=== PATIENT | female | born 1990 | race Two or more races ===

== ENCOUNTER 2022-07-17 09:01 | Emergency (ER) | payer OTHER ==
[~2022-07-17] VITALS: Ht 167.6 cm; Wt 153.4 kg
[2022-07-17 11:04] VITALS: BP 151/93
[2022-07-17] MEDS ORDERED: ACETAMINOPHEN 500 MG TAB PO ONE (11:30)
[2022-07-17] MEDS ORDERED: ACET1CAP14 PO (13:07)
[2022-07-17] MEDS ORDERED: AMOX-277 PO (13:07)
== END 2022-07-17 13:19 | disposition home or self-care (01) ==
LOC: ER 09:01
DX: H66.92 Otitis media, unspecified, left ear (principal)
CPT/HCPCS: 87070; 87880

== ENCOUNTER 2024-10-25 18:48 | Emergency (ER) | payer OTHER ==
[~2024-10-25] VITALS: Ht 162.6 cm; Wt 152.5 kg
[~2024-10-25 18:48] MED LIST: ACET1CAP14 PO; AMOX875T4 PO
[2024-10-25 19:37] LABS: Hematocrit 39.0 % (36.0-46.0); Hemoglobin 12.7 g/dL (12.2-16.2); Mean Corpuscular Hemoglobin 23.8 pg (28.0-32.0); Mean Corpuscular Volume 73.3 fL (80.0-100.0); Nucleated Red Blood Cells % 0.1 %
[2024-10-25 19:45] VITALS: BP 155/95; PULSE 98; RESP 19; TEMP 98.3; O2SAT 97
[2024-10-25 19:48] LABS: Alanine Aminotransferase 27 U/L (7-40); Albumin 4.6 g/dL (3.2-4.8); Anion Gap 10 (5-15); BUN/Creatinine Ratio 9.5 (10.0-20.0); Calcium 9.2 mg/dL (8.7-10.4); Carbon Dioxide 26 mmol/L (20-31); Chloride 101 mmol/L (98-107); Sodium 137 mmol/L (136-145); Total Protein 8.1 g/dL (5.7-8.2)
[2024-10-25 19:49] LABS: Bilirubin, Total 0.5 mg/dL (0.2-1.0)
--- NOTE | 2024-10-25 19:50 | DVH ---
CHEST RADIOGRAPH Indication: SOB Technique: Frontal and lateral view of the chest was obtained Comparison: None FINDINGS: Lines and Tubes: None Lungs: Clear Pleura: No pleural effusion or pneumothorax. Cardiomediastinal contours: Unremarkable Bones: Unremarkable IMPRESSION: No abnormality demonstrated.
[2024-10-25 19:51] LABS: Alkaline Phosphatase 134 U/L (46-116); Blood Urea Nitrogen 7 mg/dL (9-23); Glucose 144 mg/dL (74-106); Potassium 3.5 mmol/L (3.5-5.1)
[2024-10-25] MEDS: SODIUM CHLORIDE 0.9% 2,000 ML IV ONE (20:12)
[2024-10-25 20:13] LABS: COVID19 ANTIGEN SOFIA FIA NEGATIVE (NEGATIVE)
[2024-10-25 20:17] LABS: Urine Protein, UAD TRACE (Negative)
[2024-10-25] MEDS: ACETAMINOPHEN 325 MG TAB PO ONE (20:19)
[2024-10-25] MEDS: KETOROLAC TROMETH 30 MG/ML 1ML VIAL IV ONE (20:20)
[2024-10-25] MEDS ORDERED: BACDST PO (21:40)
[2024-10-25] MEDS ORDERED: IBUP-1454 PO (21:40)
--- NOTE | 2024-10-25 21:40 | ED.PDOC ---
History of Present Illness Chief Complaint: Sore Throat Time Seen by MD: 19:00 Reviewed Notes: Nurses Notes, Medications, Allergies Past Medical History PAST MEDICAL HISTORY: Denies Surgical History: MEDICAL LIBRARIAN History: Denies all MEDICAL LIBRARIAN Hx Family History Family History: Reviewed,noncontributory to illness Social History Smoker: Non-Smoker Alcohol: Denies ETOH Use Drugs: Denies Drug Use Lives In: Home X-Ray, Labs, Meds, VS Vital Signs Date Time Temp Pulse Resp B/P (MAP) Pulse Ox O2 Delivery O2 Flow Rate FiO2 10/25/24 19:45 98 19 97 Room Air 10/25/24 19:45 98.3 98 19 155/95 (115) 97 98.3 10/25/24 18:50 99.2 117 18 149/90 97 99.2 Lab Test 10/25/24 20:00 10/25/24 19:45 10/25/24 19:26 Range/Units Urine Color Colorless Yellow Urine Clarity Turbid H Clear Urine pH 6.0 5.0-9.0 Urine Specific [place] 1.005 1.001-1.035 Urine Protein Trace H Negative Urine Ketones Negative Negative Urine Blood 1+ H Negative /uL Urine Nitrite Negative Negative Urine Bilirubin Negative Negative Urine Urobilinogen Normal Negative mg/dL Urine Leukocyte Esterase 3+ Negative /uL Urine RBC 3 0 - 4 /hpf Urine Microscopic WBC 21 H 0-5 /HPF Urine Squamous Epithelial Cells Mod <5 /hpf Urine Bacteria Few H None Seen /hpf Urine Glucose Normal Normal mg/dL Influenza Type A Antigen Negative Negative Influenza Type B Antigen Negative Negative SARS-CoV-2 Antigen (Rapid) Negative NEGATIVE White Blood Count 9.4 4.4-10.8 10^3/uL Red Blood Count 5.31 H 4.0-5.20 10^6/uL Hemoglobin 12.7 12.2-16.2 g/dL Hematocrit 39.0 36.0-46.0 % Mean Corpuscular Volume 73.3 L 80.0-100.0 fL Mean Corpuscular Hemoglobin 23.8 L 28.0-32.0 pg Mean Corpuscular Hemoglobin Concent 32.5 32.0-36.0 g/dL Red Cell Distribution Width 16.7 H 11.8-14.3 % Platelet Count 288 140-450 10^3/uL Mean Platelet Volume 7.5 6.9-10.8 fL Neutrophils (%) (Auto) 69.7 37.0-80.0 % Lymphocytes (%) (Auto) 22.7 10.0-50.0 % Monocytes (%) (Auto) 3.4 0.0-12.0 % Eosinophils (%) (Auto) 3.5 0.0-7.0 % Basophils (%) (Auto) 0.7 0.0-2.0 % Neutrophils # (Auto) 6.5 1.6-8.6 10 ^3/uL Lymphocytes # (Auto) 2.1 0.4-5.4 10 ^3/uL Monocytes # (Auto) 0.3 0-1.3 10 ^3/uL Eosinophils # (Auto) 0.3 0-0.8 10 ^3/uL Basophils # (Auto) 0.1 0-0.2 10 ^3/uL Nucleated Red Blood Cells 0.1 % Sodium Level 137 136-145 mmol/L Potassium Level 3.5 3.5-5.1 mmol/L Chloride Level 101 98-107 mmol/L Carbon Dioxide Level 26 20-31 mmol/L Anion Gap 10 5-15 Blood Urea Nitrogen 7 L 9-23 mg/dL Creatinine 0.74 0.550-1.02 mg/dL Glomerular Filtration Rate Calc 110 >90 mL/min BUN/Creatinine Ratio 9.5 L 10.0-20.0 Serum Glucose 144 H 74-106 mg/dL Lactic Acid Level 1.4 0.4-2.0 mmol/L Calcium Level 9.2 8.7-10.4 mg/dL Total Bilirubin 0.5 0.2-1.0 mg/dL Aspartate Amino Transferase (AST) 20 13-40 U/L Alanine Aminotransferase (ALT) 27 7-40 U/L Alkaline Phosphatase 134 H 46-116 U/L Total Protein 8.1 5.7-8.2 g/dL Albumin 4.6 3.2-4.8 g/dL Current Medications Medications (Trade) Dose Ordered Sig/Naty Route Start Time Stop Time Status Last Admin Sodium Chloride 2,000 ml @ 1,000 mls/hr Q2H ONCE IV 10/25/24 19:15 10/25/24 21:14 DC 10/25/24 20:12 Ketorolac Tromethamine (Toradol Injection) 30 mg ONCE ONCE IV 10/25/24 19:15 10/25/24 19:16 DC 10/25/24 20:20 Acetaminophen (Tylenol Tablet) 650 mg ONCE ONCE PO 10/25/24 19:15 10/25/24 19:16 DC 10/25/24 20:19 Ceftriaxone Sodium 50 ml @ 100 mls/hr ONCE ONCE IV 10/25/24 20:30 10/25/24 20:59 DC 10/25/24 20:39 Time of 2ND Reevaluation: 21:39 Reevaluation 2ND: Improved Patient Education/Counseling: Diagnosis, Treatment, Prognosis, Need For Follow Up Family Education/Counseling: No Family Present SEPSIS Sepsis Screen Date sepsis recognized/suspect: Oct 25, 2024 Time Sepsis recognized/suspect: 1851 Recent Procedure: No On Antibiotic Therapy: No Respiratory Rate >20: No Heart Rate >90: No Temp<36 C (96.8 F) or >38.3 C: No SBP <90 or MAP <65 mmHG: No New Acute Mental Status Change: No Is the patient on CPAP, BIPAP,: No Physician Orders Chest Two Views Routine (10/25/24 19:05) Vital Signs Date Time Temp Pulse Resp B/P (MAP) Pulse Ox O2 Delivery O2 Flow Rate FiO2 10/25/24 19:45 98 19 97 Room Air 10/25/24 19:45 98.3 98 19 155/95 (115) 97 98.3 10/25/24 18:50 99.2 117 18 149/90 97 99.2 Laboratory Tests Test 10/25/24 19:26 Lactic Acid Level 1.4 mmol/L (0.4-2.0) White Blood Count 9.4 10^3/uL (4.4-10.8) Medications Medications Dose Ordered Sig/Naty Route Start Time Stop Time Status Last Admin Dose Admin Acetaminophen 650 mg ONCE ONCE PO 10/25/24 19:15 10/25/24 19:16 DC 10/25/24 20:19 Ceftriaxone Sodium 50 ml @ 100 mls/hr ONCE ONCE IV 10/25/24 20:30 10/25/24 20:59 DC 10/25/24 20:39 Ketorolac Tromethamine 30 mg ONCE ONCE IV 10/25/24 19:15 10/25/24 19:16 DC 10/25/24 20:20 Sodium Chloride 2,000 ml @ 1,000 mls/hr Q2H ONCE IV 10/25/24 19:15 10/25/24 21:14 DC 10/25/24 20:12 Departure 1 Departure Time of Disposition: 21:39 Impression: Primary Impression: Urinary tract infection Qualified Codes: N30.00 - Acute cystitis without hematuria Disposition: HOME / SELF CARE / HOMELESS Condition: Stable e-Prescriptions Ibuprofen (Ibuprofen) 600 Mg Tab 1 TAB PO TID PRN for 6 Days, #18 TAB Prov: SOBIA LEONARD 10/25/24 Sulfamethoxazole W/Trimethopri (Bactrim Ds Tablet) 1 Tab Tb 1 TAB PO BID for 5 Days, #10 TAB Prov: SOBIA LEONARD 10/25/24 Discharged With: Self Critical Care Note Critical Care Time?: No Stability Stability form required: SOBIA Hernandez Oct 25, 2024 21:40
== END 2024-10-25 21:50 | disposition home or self-care (01) ==
LOC: ER 18:48
DX: N39.0 Urinary tract infection, site not specified (principal); Z79.899 Other long term (current) drug therapy; Z20.822 Contact with and (suspected) exposure to COVID-19
CPT/HCPCS: 36415; 71046; 80053; 81001; 83605; 85025; 87426; 87804; 96365; 96375; 99284; J0696; J1885; J7030

== ENCOUNTER 2024-11-27 18:03 | Emergency (ER) | payer OTHER ==
[2024-11-27 18:04] VITALS: BP 147/76; PULSE 81; RESP 18; TEMP 98.5; O2SAT 98
== END 2024-11-27 19:40 | disposition left against medical advice (07) ==
LOC: ER 18:03
DX: J02.9 Acute pharyngitis, unspecified (principal); Z53.21 Procedure and treatment not carried out due to patient leaving prior to being seen by health care provider

== ENCOUNTER 2025-01-08 19:07 | Emergency (ER) | payer OTHER ==
[~2025-01-08] VITALS: Ht 162.6 cm; Wt 140.0 kg
[2025-01-08 19:09] VITALS: TEMP 97.5
[2025-01-08 19:44] VITALS: PULSE 96; RESP 18
--- NOTE | 2025-01-08 19:55 | ED.PDOC ---
HPI Comments HPI: 34 y/o F, with PMHx of HTN presents to the ED for CC of high blood pressure. Patient states, she has been experiencing symptoms of lightheadedness, chills, and headache onset, today (01/08/25). Patient reports, symptoms prompted her to check her blood pressure which showed her SBP to be in the 170's. Patient relays, that she does have PMHx of HTN however, is non-complaint with medications at this time. Patient denies active chest pain, nausea, vomiting, or vision changes. No other symptoms or modifying factors are present at this time. Initial Vitals BP:134/88 HR:97 RR:16 O2:100% Temp:97.5 Past Medical History: HTN Past Surgical History: X2 Social History: DENIES ANY Medications: DENIES ANY Allergies: IBUPROFEN fernandez: Hypertension, lightheadedness, generalized weakness. Patient is not taking her blood pressure medications. HPI: Poor Historian. REVIEW OF SYSTEMS: CONSTITUTIONAL: Denies acute: fever, diaphoresis, chills, HEAD: Denies acute: headache, photophobia Eyes: Denies acute: Double vision, vision loss, eye pain, eye discharge. EARS: Denies acute: tinnitus, hearing loss, ear discharge, ear pain, THROAT: Denies acute: sore throat, swelling, difficulty swallowing , pain with swallowing, change in voice. NECK: Denies acute: neck pain, neck swelling, stiff neck. HEART: Denies acute : chest pain, palpitations, LUNGS: Denies acute: SOB, wheezing, cough, hemoptysis ABDOMEN: Denies acute: abdominal pain, Nausea, Vomiting, diarrhea, melena , hematemesis, hematochezia SKIN: Denies acute: rash, redness, lesions, itchiness. EXTREMITIES: Denies acute: calf pain, numbness, tingling, weakness, denies pain in extremity. Denies acute: Low back pain. Neuro: Denies acute: focal neurological deficit, motor or sensory focal neurological deficit, tremors, seizure like activity, confusion, , change in mental status, loss of bowel or bladder function, cauda equina like symptoms. : Denies acute: dysuria, hematuria, flank pain, increase in urinary frequency. PSYCH: Denies acute: hallucination, suicidal ideation, homicidal ideation. FEMALE: Denies acute: abnormal vaginal bleeding, foul odor, unusual discharge. PHYSICAL EXAM: General: ----mild----acute distress, awake and alert. Head: normocephalic, atraumatic. No raccoon's eyes, no bustos sign. Neck: supple, trachea is midline, no swelling. Throat: Normal phonation. Eyes:, no erythema, no purulent discharge, no proptosis, no icterus. Heart: regular rate, regular rhythm, no significant murmur appreciated. Lungs: no apparent respiratory distress, Able to speak in full sentences. No wheezing, no rhonchi, no crackles. No stridors Clear to auscultation bilaterally. Abdomen: non tender to palpation, non distended, soft, no guarding, no rebound, + bowel sounds. Morbidly obese Neuro: Awake, Alert, oriented to name, self, situation, follows commands GCS=15. Speech is normal. Skin: no petechia, no purpura, no cyanosis, non-pale, not jaundice. Lower extremities: --no - Pitting edema no deformity, no focal swelling, no calf TTP. Makes eye contact. moves all four extremities. Face: no apparent facial droop. Ambulating in the ED independently. ED COURSE: DISCLAIMER: This medical document was created using an electronic medical record system with voice recognition software and computerized dictation system. Although this document has been carefully reviewed, there might still be some phonetic and typographical errors. Occasional wrong-word or "sound-alike" substitutions may have occurred due to the inherent limitations of voice recognition software. These areas are purely typographical due to imperfections of the software programs and do not reflect any compromise in the patient's medical care. Please read the chart carefully and recognize, using context, where these substitutions have occurred. Chief Complaint: High Blood Pressure Time Seen by MD: 19:50 Primary Care Provider: Lauren Day Reviewed Notes: Nurses Notes, Medications, Allergies Allergies: Coded Allergies: Ibuprofen (Verified Allergy, Unknown, 10/25/24) Home Meds Active Scripts Acetaminophen (Tylenol) 325 Mg Cap, 325 MG PO Q4HPRN PRN, #30 CAP 0 Refills Take 1-2 caps po q4h prn for pain/fever (Do not exceed 3,000mg of acetaminophen in 24 hours) Prov:BJ LUDWIG [facility] 07/17/22 Amoxicillin & Pot Clavulanate (Amoxicillin/Potassium Cla) 875 Mg Tab, 1 TAB PO BID for 10 Days, #20 TAB 0 Refills Prov:BJ LUDWIG [facility] 07/17/22 Information Source: Patient Mode of Arrival: Ambulatory Severity: Moderate Timing: Days Duration: Since onset Prehospital treatment: None Onset: At Rest Cardiac Risk Factors: HTN PE Risk Factors: None History of: None Modifying Factors: Nothing Associated Signs and Symptoms: None Was a procedure done? Was a procedure done?: No CP Differential Dx Differential Diagnosis: HTN Essential, HTN Accelerated X-Ray, Labs, Meds, VS Vital Signs Date Time Temp Pulse Resp B/P (MAP) Pulse Ox O2 Delivery O2 Flow Rate FiO2 01/08/25 20:18 143/94 (110) 01/08/25 20:18 98 Room Air* 0 21 01/08/25 20:17 97 143/94 01/08/25 19:44 96 18 160/103 (122) 97 01/08/25 19:09 97.5 97 16 134/88 100 97.5 Lab Test 01/08/25 22:04 01/08/25 19:49 Range/Units Urine Color Colorless Yellow Urine Clarity Clear Clear Urine pH 6.0 5.0-9.0 Urine Specific [place] 1.005 1.001-1.035 Urine Protein Negative Negative Urine Ketones Negative Negative Urine Blood Negative Negative /uL Urine Nitrite Negative Negative Urine Bilirubin Negative Negative Urine Urobilinogen Normal Negative mg/dL Urine Leukocyte Esterase 1+ Negative /uL Urine RBC 1 0 - 4 /hpf Urine Microscopic WBC 15 H 0-5 /HPF Urine Squamous Epithelial Cells Few <5 /hpf Urine Bacteria Few H None Seen /hpf Urine Glucose Normal Normal mg/dL White Blood Count 5.5 4.4-10.8 10^3/uL Red Blood Count 5.20 4.0-5.20 10^6/uL Hemoglobin 12.2 12.2-16.2 g/dL Hematocrit 37.4 36.0-46.0 % Mean Corpuscular Volume 71.9 L 80.0-100.0 fL Mean Corpuscular Hemoglobin 23.5 L 28.0-32.0 pg Mean Corpuscular Hemoglobin Concent 32.6 32.0-36.0 g/dL Red Cell Distribution Width 16.4 H 11.8-14.3 % Platelet Count 229 140-450 10^3/uL Mean Platelet Volume 7.7 6.9-10.8 fL Neutrophils (%) (Auto) 80.7 H 37.0-80.0 % Lymphocytes (%) (Auto) 12.4 10.0-50.0 % Monocytes (%) (Auto) 5.5 0.0-12.0 % Eosinophils (%) (Auto) 0.5 0.0-7.0 % Basophils (%) (Auto) 0.9 0.0-2.0 % Neutrophils # (Auto) 4.4 1.6-8.6 10 ^3/uL Lymphocytes # (Auto) 0.7 0.4-5.4 10 ^3/uL Monocytes # (Auto) 0.3 0-1.3 10 ^3/uL Eosinophils # (Auto) 0 0-0.8 10 ^3/uL Basophils # (Auto) 0 0-0.2 10 ^3/uL Nucleated Red Blood Cells 0.2 % Sodium Level 133 L 136-145 mmol/L Potassium Level 3.8 3.5-5.1 mmol/L Chloride Level 101 98-107 mmol/L Carbon Dioxide Level 24 20-31 mmol/L Anion Gap 8 5-15 Blood Urea Nitrogen 7 L 9-23 mg/dL Creatinine 0.74 0.550-1.02 mg/dL Glomerular Filtration Rate Calc 110 >90 mL/min BUN/Creatinine Ratio 9.5 L 10.0-20.0 Serum Glucose 102 74-106 mg/dL Calcium Level 9.0 8.7-10.4 mg/dL Total Bilirubin 0.6 0.2-1.0 mg/dL Aspartate Amino Transferase (AST) 21 13-40 U/L Alanine Aminotransferase (ALT) 20 7-40 U/L Alkaline Phosphatase 113 46-116 U/L Troponin I High Sensitivity < 3 L </=34 ng/L Total Protein 7.7 5.7-8.2 g/dL Albumin 4.3 3.2-4.8 g/dL Time of 1ST Reevaluation: 20:10 Reevaluation 1ST: Unchanged Patient Education/Counseling: Diagnosis, Treatment Family Education/Counseling: No Family Present SEPSIS Sepsis Screen Date sepsis recognized/suspect: Jan 08, 2025 Time Sepsis recognized/suspect: 1911 Recent Procedure: No On Antibiotic Therapy: No Respiratory Rate >20: No Heart Rate >90: Yes Temp<36 C (96.8 F) or >38.3 C: No SBP <90 or MAP <65 mmHG: No New Acute Mental Status Change: No Is the patient on CPAP, BIPAP,: No Physician Orders [employer] [employer] (01/08/25 ) Electrocardigram (01/08/25 19:27) Vital Signs Date Time Temp Pulse Resp B/P (MAP) Pulse Ox O2 Delivery O2 Flow Rate FiO2 01/08/25 20:18 143/94 (110) 01/08/25 20:18 98 Room Air* 0 21 01/08/25 20:17 97 143/94 01/08/25 19:44 96 18 160/103 (122) 97 01/08/25 19:09 97.5 97 16 134/88 100 97.5 Laboratory Tests Test 01/08/25 19:49 White Blood Count 5.5 10^3/uL (4.4-10.8) Departure 1 Departure Time of Disposition: 23:41 Impression: Primary Impression: UTI (urinary tract infection) Additional Impression: Hypertension Disposition: 01 HOME / SELF CARE / HOMELESS Condition: Stable Additional Instructions: Additional instructions: Please read all instructions provided in this packet carefully. You MUST follow-up with your primary care/family doctor in 1 to 2 days. If you are unable to see your primary care/family doctor, please return to our emergency room for re-assessment and re-evaluation in 1 to 2 days. Return to the emergency room here in our facility or to the nearest ER [facility] if your symptoms change or worsen. CONSULTATIONS: you MUST Follow-up for consultation as soon as possible with: -cardiology in 1-2 days. Please call for appointment You MUST call the consultants office yourself to make an appointment. You may n eed to arrange that through your insurance and/or your primary/family doctor. If you are unable to see the independent crop consultant in 1 to 2 days, you must return to our emergency room (or any other ER of your choice) for re-assessment and re- evaluation. Adequate fluid hydration. Monitor your blood pressure at home at least 3 times a day. Although you have been discharged from the Emergency Department, this does not mean that you have a "clean bill of health". No definitive diagnosis for your symptoms has been made today. It is possible that you are in the process of developing a serious illness. This is why you must return to the ED without fail if any new or worsening symptoms develop. Please knot picker cloth your blood pressure medication and start taking it as prescribed. e-Prescriptions Nitrofurantoin Monohydrate Mac (Macrobid) 100 Mg Cap 100 MG PO BID for 7 Days, #14 CAP Prov: SKYLA TREJO DO 01/08/25 Discharged With: Self Critical Care Note Critical Care Time?: No Heart Score Heart Score: Heart Score Response (Comments) Value History N/A 0 EKG N/A 0 Age N/A 0 Risk Factors N/A 0 Troponin N/A 0 Total 0 I personally scribed for SKYLA TREJO DO ([email or web address]) on 01/08/25 at 19:55. Electronically submitted by Katelin Alicia ([email or web address]). SKYLA TREJO DO Jan 08, 2025 19:55
[2025-01-08 20:03] LABS: Hematocrit 37.4 % (36.0-46.0); Hemoglobin 12.2 g/dL (12.2-16.2); Mean Corpuscular Hemoglobin 23.5 pg (28.0-32.0); Mean Corpuscular Volume 71.9 fL (80.0-100.0); Nucleated Red Blood Cells % 0.2 %
[2025-01-08] MEDS: LABETALOL HCL 20 MG/4 ML VL IV ONE (20:17)
[2025-01-08 20:18] VITALS: BP 143/94; O2SAT 98
[2025-01-08 20:21] LABS: Alanine Aminotransferase 20 U/L (7-40); Albumin 4.3 g/dL (3.2-4.8); Alkaline Phosphatase 113 U/L (46-116); Anion Gap 8 (5-15); BUN/Creatinine Ratio 9.5 (10.0-20.0); Bilirubin, Total 0.6 mg/dL (0.2-1.0); Calcium 9.0 mg/dL (8.7-10.4); Carbon Dioxide 24 mmol/L (20-31); Chloride 101 mmol/L (98-107); Glucose 102 mg/dL (74-106); Potassium 3.8 mmol/L (3.5-5.1); Total Protein 7.7 g/dL (5.7-8.2)
[2025-01-08 20:24] LABS: Blood Urea Nitrogen 7 mg/dL (9-23); Sodium 133 mmol/L (136-145)
[2025-01-08 22:19] LABS: Urine Protein, UAD Negative (Negative)
[2025-01-08] MEDS ORDERED: NITR-87 PO (23:44)
== END 2025-01-09 00:40 | disposition home or self-care (01) ==
LOC: ER 19:07
DX: N39.0 Urinary tract infection, site not specified (principal); I10 Essential (primary) hypertension; Z88.6 Allergy status to analgesic agent
CPT/HCPCS: 36415; 80053; 81001; 84484; 85025

== ENCOUNTER 2025-01-30 15:09 | Emergency (ER) | payer OTHER ==
[~2025-01-30] VITALS: Ht 175.3 cm; Wt 136.2 kg
[~2025-01-30 15:09] MED LIST changes: +NITR-87 PO
--- NOTE | 2025-01-30 15:45 | ED.PDOC ---
History of Present Illness HPI Comments A 34 YEAR OLD FEMALE PRESENTS TO THE ED WITH COMPLAINT OF ANXIETY. PATIENT STATES SHE HAS A HISTORY OF ANXIETY AND BEGAN TO EXPERIENCE INCREASED ANXIETY, MILD DIZZINESS, SHAKINESS, AND AN INABILITY TO CALM HERSELF DOWN TODAY. PATIENT REPORTS SHE BEEN UNDER STRESS RECENTLY DUE TO BOTH HER AND HER HAVING PLANNED SURGERIES SOON WHICH EXACERBATED HER ANXIETY. PATIENT DENIES SI, HI, FEVER, CHILLS, SHORTNESS OF BREATH, CHEST PAIN, ABDOMINAL PAIN, NAUSEA, VOMITING, HEADACHE, OR OTHER COMPLAINTS. NO OTHER SYMPTOMS OR MODIFYING FACTORS AT THIS TIME. PATIENT IS ALERT, ORIENTED X 4, AND HAS STEADY GAIT. Chief Complaint: Anxiety Time Seen by MD: 15:11 Primary Care Provider: Lauren Ge Notes: Nurses Notes, Medications, Allergies Allergies: Coded Allergies: Ibuprofen (Verified Allergy, Unknown, 10/25/24) Home Meds Active Scripts Nitrofurantoin Monohydrate Mac (Macrobid) 100 Mg Cap, 100 MG PO BID for 7 Days, #14 CAP Prov:SKYLA TREJO DO 01/08/25 Acetaminophen (Tylenol) 325 Mg Cap, 325 MG PO Q4HPRN PRN, #30 CAP 0 Refills Take 1-2 caps po q4h prn for pain/fever (Do not exceed 3,000mg of acetaminophen in 24 hours) Prov:BJ LUDWIG [facility] 07/17/22 Amoxicillin & Pot Clavulanate (Amoxicillin/Potassium Cla) 875 Mg Tab, 1 TAB PO BID for 10 Days, #20 TAB 0 Refills Prov:BJ LUDWIG [facility] 07/17/22 Information Source: Patient Mode of Arrival: Ambulatory Severity: Moderate Timing: Hours Duration: Since onset, Hours Prehospital treatment: None Medication Refill: For: Other (ANXIETY REACTION) Past Medical History PAST MEDICAL HISTORY: Anxiety Surgical History: GUIDE PLANT History: Denies all GUIDE PLANT Hx Family History Family History: Reviewed,noncontributory to illness Social History Smoker: Non-Smoker Alcohol: Denies ETOH Use Drugs: Denies Drug Use Lives In: Home Constitutional: reports: others (ANXIOUS ); denies: chills, diaphoresis, fatigue, fever, malaise, sweats, weakness EENTM: denies: blurred vision, double vision, ear bleeding, ear discharge, ear drainage, ear pain, ear ringing, eye pain, eye redness, hearing loss, mouth pain, mouth swelling, nasal discharge, nose bleeding, nose congestion, nose pain, photophobia, tearing, throat pain, throat swelling, voice changes, others Respiratory: denies: cough, hemoptysis, orthopnea, SOB at rest, shortness of breath, SOB with excertion, stridor, wheezing, others Cardiovascular: denies: chest pain, dizzy spells, diaphoresis, Dyspnea on exertion, edema, irregular heart beat, left arm pain, lightheadedness, palpitations, PND, syncope, others Gastrointestinal: denies: abdomen distended, abdominal pain, blood streaked bowels, constipated, diarrhea, dysphagia, difficulty swallowing, hematemesis, melena, nausea, poor appetite, poor fluid intake, rectal bleeding, rectal pain, vomiting, others Genitourinary: denies: abnormal vagina bleeding, burning, dyspareunia, dysuria, flank pain, frequency, hematuria, incontinence, pain, , vagina discharge, urgency, others Neurological: reports: dizziness, tingling; denies: fainting, headache, left sided numbness, left sided weakness, numbness, paresthesia, pre-existing deficit, right sided numbness, right sided weakness, seizure, speech problems, tremors, weakness, others Musculoskeletal: denies: back pain, gout, joint pain, joint swelling, muscle pain, muscle stiffness, neck pain, others Integumetry: denies: bruises, change in color, change in hair/nails, dryness, laceration, lesions, lumps, rash, wounds, others Allergic/Immunocompromised: denies: Difficulty Healing, Frequent Infections, Hives, Itching, others Hematologic/Lymphatic: denies: anemia, blood clots, easy bleeding, easy bruising, swollen glands, others Endocrine: denies: excessive hunger, excessive sweating, excessive thirst, excessive urination, flushing, intolerance to cold, intolerance to heat, unexplained weight gain, unexplained weight loss, others Psychiatric: reports: anxiety; denies: bipolar disorder, depression, hopeless, panic disorder, schizophrenia, sleepless, suicidal, others All Other Systems: Reviewed and Negative Physical Exam General Appearance: No Apparent Distress, Obese, Other (ANXIOUS ) HEENT: Normal ENT Inspection, PERRL/EOMI, Pharynx Normal, TMs Normal Neck: Full Range of Motion, Non-Tender, Normal, Normal Inspection Respiratory: Chest Non-Tender, Lungs Clear, No Accessory Muscle Use, No Respiratory Distress, Normal Breath Sounds Cardiovascular: No Edema, No JVD, No Murmur, No Gallop, Normal Peripheral Pulses, Regular Rate/Rhythm Breast Exam: Deferred Gastrointestinal: No Organomegaly, Non Tender, No Pulsatile Mass, Normal Bowel Sounds, Soft Genitalia: Deferred Pelvic: Deferred Rectal: Deferred Extremities: No calf tenderness, Normal capillary refill, Normal inspection, Normal range of motion, Non-tender, No pedal edema Musculoskeletal : Apperance: Normal Neurologic: Alert, mental health assistant II-XII nml as Tested, No Motor Deficits, Normal Affect, Normal Mood, No Sensory Deficits Cerebellar Function: Normal Reflexes: Normal Skin: Dry, Normal Color, Warm Peripheral Pulses: 2+ carotid (R), 2+ carotid (L) Lymphatic: No Adenopathy Was a procedure done? Was a procedure done?: No EKG EKG : Pulse Rate (adult): 57 [place]: Normal Cardiac Rhythm: NSR Block: None Hypertrophy: None ST: Normal Differential Dx Considerations may include: ANXIETY REACTION, HYPERVENTILATION SYNDROME, WELL CHECK X-Ray, Labs, Meds, VS Vital Signs Date Time Temp Pulse Resp B/P (MAP) Pulse Ox O2 Delivery O2 Flow Rate FiO2 01/30/25 15:45 57 01/30/25 15:41 98.4 57 20 151/90 (110) 100 98.4 01/30/25 15:41 57 20 100 Room Air 01/30/25 15:24 57 01/30/25 15:11 98.4 57 20 151/90 100 98.4 Lab Test 01/30/25 15:19 Range/Units POC Glucose 82 70-106 mg/dl Current Medications Medications (Trade) Dose Ordered Sig/Naty Route Start Time Stop Time Status Last Admin Diphenhydramine HCl (Benadryl Injection) 50 mg ONCE ONCE IM 01/30/25 15:45 01/30/25 15:46 DC 01/30/25 15:49 X-Ray, Labs, Meds, VS Comment EXTERNAL MEDICAL RECORDS REVIEWED: [NONE] INDEPENDENT HISTORIANS: [NONE] SOCIAL DETERMINANTS OF HEALTH: [NONE] LABS ORDERED: NONE REVIEWED AND INTERPRETED RESULTS: NONE IMAGING ORDERED: NONE TREATMENTS ORDERED: BENADRYL 50 MG IM PROCEDURES PERFORMED: NONE CRITICAL CARE TIME: NONE I HAVE DISCUSSED THE PATIENT WITH THE ATTENDING PHYSICIAN DR. MONK AND HE AGREES WITH THE PATIENT'S PLAN OF CARE AND DISPOSITION. BASED ON HISTORY OF PRESENT ILLNESS, AND PHYSICAL EXAM, PATIENT WILL BE DISCHARGED HOME. DISCUSSED PLAN FOR DISCHARGE HOME WITH RX [VISTARIL 50 MG]. MEDICATION WARNINGS GIVEN. SHARED DECISION MAKING: PATIENT INSTRUCTED TO FOLLOW UP WITH PRIMARY CARE OK OVIDER IN 1-2 DAYS FOR RE-EVALUATION OF SYMPTOMS. PATIENT VERBALIZES UNDERSTANDING TO RETURN TO ED FOR NEW OR WORSENING SYMPTOMS OR IF FOLLOW UP WITH PCP CANNOT BE OBTAINED. PATIENT FEELS COMFORTABLE GOING HOME AT THIS TIME. ALL QUESTIONS ADDRESSED AT TIME OF DISCHARGE. Time of 1ST Reevaluation: 16:10 Reevaluation 1ST: Improved Patient Education/Counseling: Diagnosis, Treatment, Need For Follow Up Family Education/Counseling: Diagnosis, Treatment, Need For Follow Up Medical Screening: No EMC Exist At This Time SEPSIS Sepsis Screen Date sepsis recognized/suspect: Jan 30, 2025 Time Sepsis recognized/suspect: 1511 Recent Procedure: No On Antibiotic Therapy: No Respiratory Rate >20: No Heart Rate >90: No Temp<36 C (96.8 F) or >38.3 C: No SBP <90 or MAP <65 mmHG: No New Acute Mental Status Change: No Is the patient on CPAP, BIPAP,: No Physician Orders Electrocardigram (01/30/25 15:32) Vital Signs Date Time Temp Pulse Resp B/P (MAP) Pulse Ox O2 Delivery O2 Flow Rate FiO2 01/30/25 15:45 57 01/30/25 15:41 98.4 57 20 151/90 (110) 100 98.4 01/30/25 15:41 57 20 100 Room Air 01/30/25 15:24 57 01/30/25 15:11 98.4 57 20 151/90 100 98.4 Medications Medications Dose Ordered Sig/Naty Route Start Time Stop Time Status Last Admin Dose Admin Diphenhydramine HCl 50 mg ONCE ONCE IM 01/30/25 15:45 01/30/25 15:46 DC 01/30/25 15:49 Departure 1 Departure Time of Disposition: 16:10 Impression: Primary Impression: Anxiety reaction Disposition: 01 HOME / SELF CARE / HOMELESS Condition: Stable Additional Instructions: FOLLOW-UP WITH PCP IN 1 TO 2 DAYS. TAKE MEDICATIONS PRESCRIBED. RETURN TO ED FOR ANY NEW OR WORSENING SYMPTOMS. e-Prescriptions Hydroxyzine Hcl (Hydroxyzine Hcl) 50 Mg Tab 1 TAB PO QPM, #30 TAB Prov: ROSE COLBY 01/30/25 Discharged With: Self, Spouse Critical Care Note Critical Care Time?: No Stability Stability form required: No I personally scribed for ROSE COLBY ([email or web address]) on 01/30/25 at 15:45. Electronically submitted by Chet Caballero ([email or web address]). ROSE COLBY Jan 30, 2025 15:45
[2025-01-30] MEDS: diphenhydrAMINE HCL 50 MG/1 ML VL IM ONE (15:49)
[2025-01-30 16:10] VITALS: BP 115/65; PULSE 64; RESP 20; TEMP 98.4; O2SAT 100
[2025-01-30] MEDS ORDERED: HYDR50TA69 PO (16:11)
--- NOTE | 2025-02-02 06:39 | ECG ---
[facility] Test Date: 2025-01-30 Test Time: 15:24:18 Pat Name: SOWMYA CABRERA Department: Room: Gender: F [employer] Developer: FAVIOLA : 1990 Requested By: ROSE COLBY Order Number: [id number] Reading MD: López Eldridge Measurements Intervals [place] Rate: 57 P: 71 WV: 172 QRS: 45 QRSD: 105 T: 29 QT: 443 QTc: 432 Interpretive Statements Sinus rhythm Consider left atrial enlargement Electronically Signed On 02-05-2025 19:00:48 PST by López Eldridge Please click the below link to view image of tracing.
== END 2025-01-30 16:17 | disposition home or self-care (01) ==
LOC: ER 15:09
DX: F41.1 Generalized anxiety disorder (principal); Z88.6 Allergy status to analgesic agent; Z79.899 Other long term (current) drug therapy
CPT/HCPCS: 82947; 93005; 96372; 99283; J1200; 82962